=== PATIENT | female | born 1990 | race Caucasian/White ===

== ENCOUNTER 2017-08-26 20:08 | Emergency (ER) | payer MEDICAID ==
[~2017-08-26] VITALS: Ht 154.9 cm; Wt 51.3 kg
[2017-08-26 20:14] VITALS: BP 115/87
[2017-08-26 21:19] LABS: Urine Bacteria NONE SEEN /hpf (None Seen); Urine Blood Negative /uL (Negative); Urine Specific Gravity 1.004 (1.001-1.035); Urine WBC 2 /hpf (0 - 5)
[2017-08-27] MEDS ORDERED: MORPHINE SULF INJ 2 MG/ML SYRINGE 1ML ONE (00:39)
[2017-08-27] MEDS ORDERED: PROMETHAZINE HCL 25 MG/ML 1ML ONE (00:39)
== END 2017-08-26 22:35 | disposition left against medical advice (07) ==
LOC: ER 20:08
DX: R10.30 Lower abdominal pain, unspecified (principal); Z53.21 Procedure and treatment not carried out due to patient leaving prior to being seen by health care provider
CPT/HCPCS: 81001

== ENCOUNTER 2018-01-23 11:40 | Observation (INO) | payer MEDICAID ==
[2018-01-23] MEDS ORDERED: PREN-96 PO (15:08)
== END 2018-01-23 13:35 | disposition home or self-care (01) | DRG 566 ==
LOC: LDRP 11:40
PROVIDERS: ADMIT Obstetrics & Gynecology; ATTEND Obstetrics & Gynecology
DX: O24.419 Gestational diabetes mellitus in pregnancy, unspecified control (principal); Z3A.36 36 weeks gestation of pregnancy
CPT/HCPCS: G0378 ×2

== ENCOUNTER 2018-01-31 02:10 | Observation (INO) | payer MEDICAID ==
[~2018-01-31 02:10] MED LIST: PREN-96 PO
== END 2018-01-31 04:30 | disposition home or self-care (01) | DRG 565 ==
LOC: LDRP 02:10
PROVIDERS: ADMIT Specialist; ATTEND Specialist
DX: O47.9 False labor, unspecified (principal); O24.419 Gestational diabetes mellitus in pregnancy, unspecified control; Z3A.37 37 weeks gestation of pregnancy
CPT/HCPCS: 59025; 76818; 81002; 82962; G0378

== ENCOUNTER 2018-02-03 12:20 | Observation (INO) | payer MEDICAID ==
[2018-02-03 14:42] LABS: Hematocrit 39.1 % (36.0-46.0); Mean Corpuscular Hemoglobin 29.3 pg (28.0-32.0); Mean Corpuscular Hgb Conc. 33.2 g/dL (32.0-36.0); Mean Corpuscular Volume 88.2 fL (80.0-100.0); Platelet Count (auto) 246 10^3/uL (140-450); Red Blood Cells 4.43 10^6/uL (4.0-5.20); Red Cell Distribution Width 14.4 % (11.8-14.3); White Blood Cell 13.2 10^3/uL (4.4-10.8)
[2018-02-03 15:07] LABS: Basophils % (manual) 0 (0.0-2.0); Blast Cells 0; Metamyelocytes % 0; Promyelocytes % 0; Reactive Lymphocytes 0
[2018-02-03 15:37] LABS: Band Neutrophils % (manual) 2; Eosinophils % (manual) 1 (0-7); Lymphocytes % (manual) 13 (10.0-50.0); Monocytes % (manual) 8 (0-12); Myelocytes % 1
[2018-02-03 15:38] LABS: Alcohol, Urine < 3.0 mg/dL (0-5); Amphetamine Screen, Urine NEGATIVE (NEGATIVE); Barbiturate Scree,Urine NEGATIVE (NEGATIVE); Benzodiazephine Screen, Urine NEGATIVE (NEGATIVE); Cocaine Screen, Urine NEGATIVE (NEGATIVE); Opiate Scree,Urine NEGATIVE (NEGATIVE); Phencyclidine Screen, Urine NEGATIVE (NEGATIVE)
[2018-02-03 16:29] LABS: Cannabinoid Screen, Urine NEGATIVE (NEGATIVE)
[2018-02-06 05:06] LABS: RPR Non Reactive (Non Reactive)
== END 2018-02-03 15:20 | disposition home or self-care (01) | DRG 566 ==
LOC: LDRP 12:20
PROVIDERS: ADMIT Obstetrics & Gynecology; ATTEND Obstetrics & Gynecology
DX: O24.419 Gestational diabetes mellitus in pregnancy, unspecified control (principal); O62.9 Abnormality of forces of labor, unspecified; Z3A.37 37 weeks gestation of pregnancy
CPT/HCPCS: 36415; 59025; 76805; 76818; 80307; 81002; 83036; 85007; 85027; 86592; G0378

== ENCOUNTER 2018-02-04 09:50 | Observation (INO) | payer MEDICAID | END 2018-02-04 11:25 | disposition home or self-care (01) | DRG 566 | LOC: LDRP 09:50 | PROVIDERS: ADMIT Specialist; ATTEND Specialist | DX: O24.419 Gestational diabetes mellitus in pregnancy, unspecified control (principal); O21.2 Late vomiting of pregnancy; O62.9 Abnormality of forces of labor, unspecified; Z3A.38 38 weeks gestation of pregnancy | CPT/HCPCS: 59025; 76818; 81002; 82962; G0378 ==

== ENCOUNTER 2018-02-11 13:30 | Observation (INO) | payer MEDICAID | END 2018-02-11 15:30 | disposition home or self-care (01) | DRG 566 | LOC: LDRP 13:30 | PROVIDERS: ADMIT Specialist; ATTEND Specialist | DX: O42.92 Full-term premature rupture of membranes, unspecified as to length of time between rupture and onset of labor (principal); O26.893 Other specified pregnancy related conditions, third trimester; O62.9 Abnormality of forces of labor, unspecified; Z3A.39 39 weeks gestation of pregnancy; R51 Headache | CPT/HCPCS: 59025; 76815; 81002; G0378 ==

== ENCOUNTER 2018-02-16 12:05 | Observation (INO) | payer MEDICAID ==
[2018-02-16] MEDS ORDERED: LACT. RINGERS/OXYTOCIN 20UNITS 1,000 ML IV ONE (15:43)
[2018-02-16] MEDS ORDERED: LIDOCAINE 2%HCL (LOCAL ANESTH.) INJ 20ML MDV ONE (15:43)
== END 2018-02-16 14:05 | disposition home or self-care (01) | DRG 566 ==
LOC: LDRP 12:05
PROVIDERS: ADMIT Obstetrics & Gynecology; ATTEND Obstetrics & Gynecology
DX: O24.419 Gestational diabetes mellitus in pregnancy, unspecified control (principal); O62.9 Abnormality of forces of labor, unspecified; Z3A.39 39 weeks gestation of pregnancy
CPT/HCPCS: 59025; 81002; 82948; 82962; G0378; J2590; 59409; 96361; 96366

== ENCOUNTER 2019-12-12 16:06 | Emergency (ER) | payer MEDICAID ==
[~2019-12-12] VITALS: Ht 154.9 cm; Wt 52.2 kg
[2019-12-12 16:09] VITALS: BP 113/78
[2019-12-12] MEDS ORDERED: SODIUM CHLORIDE 0.9% 1,000 ML IV ONE (16:30)
[2019-12-12] MEDS ORDERED: SODIUM CHLORIDE 0.9% 1,000 ML IVB ONE (16:30)
[2019-12-12] MEDS ORDERED: KETOROLAC TROMETH 30 MG/ML 1ML VIAL IV ONE (16:30)
[2019-12-12 16:55] LABS: Basophils # (auto) 0 10 ^3/uL (0-0.2); Basophils % (auto) 0.5 % (0.0-2.0); Eosinophils # (auto) 0.3 10 ^3/uL (0-0.8); Eosinophils % (auto) 3.2 % (0.0-7.0); Hematocrit 42.3 % (36.0-46.0); Hemoglobin 14.8 g/dL (12.2-16.2); Lymphocytes # (auto) 3.3 10 ^3/uL (0.4-5.4); Lymphocytes % (auto) 38.4 % (10.0-50.0); Mean Corpuscular Hemoglobin 30.7 pg (28.0-32.0); Mean Corpuscular Hgb Conc. 35.1 g/dL (32.0-36.0); Mean Corpuscular Volume 87.6 fL (80.0-100.0); Monocytes # (auto) 0.5 10 ^3/uL (0-1.3); Monocytes % (auto) 5.4 % (0.0-12.0); Neutrophils # (auto) 4.5 10 ^3/uL (1.6-8.6); Neutrophils % (auto) 52.5 % (37.0-80.0); Nucleated Red Blood Cells % 0.1 %; Platelet Count (auto) 287 10^3/uL (140-450); Red Blood Cells 4.82 10^6/uL (4.0-5.20); Red Cell Distribution Width 13.1 % (11.8-14.3); White Blood Cell 8.5 10^3/uL (4.4-10.8)
[2019-12-12 16:57] LABS: Urine Bacteria FEW /hpf (None Seen); Urine Blood Negative /uL (Negative); Urine Mucus FEW (None Seen); Urine Specific Gravity 1.033 (1.001-1.035); Urine WBC 10 /hpf (0 - 5)
[2019-12-12 17:07] LABS: Albumin 4.4 g/dL (3.4-5.0); BUN/Creatinine Ratio 12.4; Calcium 9.8 mg/dL (8.5-10.1); Potassium 3.1 mmol/L (3.5-5.1)
[2019-12-12 17:08] LABS: Alcohol, Urine < 3.0 mg/dL (0-10); Amphetamine Screen, Urine POSITIVE (NEGATIVE); Barbiturate Scree,Urine NEGATIVE (NEGATIVE); Benzodiazephine Screen, Urine NEGATIVE (NEGATIVE); Cannabinoid Screen, Urine NEGATIVE (NEGATIVE); Cocaine Screen, Urine NEGATIVE (NEGATIVE); Phencyclidine Screen, Urine NEGATIVE (NEGATIVE)
[2019-12-12 17:13] LABS: Bilirubin, Total 0.8 mg/dL (0.2-1.0); Total Protein 7.8 g/dL (6.4-8.2)
[2019-12-12 17:15] LABS: Opiate Scree,Urine NEGATIVE (NEGATIVE)
== END 2019-12-12 17:05 | disposition left against medical advice (07) ==
LOC: EDUNIT# 16:06 → EDBD 16:06 → ER 16:06
DX: R10.9 Unspecified abdominal pain (principal); E86.0 Dehydration; F17.210 Nicotine dependence, cigarettes, uncomplicated
CPT/HCPCS: 36415; 80053; 80307; 81001; 85025; 96361; 96374; 99283; J1885; J7030

== ENCOUNTER 2020-09-09 10:50 | Observation (INO) | payer MEDICAID ==
[~2020-09-09] VITALS: Ht 154.9 cm; Wt 83.5 kg
== END 2020-09-09 13:24 | disposition home or self-care (01) ==
LOC: LDRP 10:50
PROVIDERS: ADMIT Specialist; ATTEND Specialist
DX: O36.63X0 Maternal care for excessive fetal growth, third trimester, not applicable or unspecified (principal); O62.9 Abnormality of forces of labor, unspecified; O36.8130 Decreased fetal movements, third trimester, not applicable or unspecified; Z3A.36 36 weeks gestation of pregnancy; Z87.891 Personal history of nicotine dependence
CPT/HCPCS: 59025; 76818; 81002; 94760; G0378

== ENCOUNTER 2020-09-12 12:55 | Observation (INO) | payer MEDICAID ==
[~2020-09-12] VITALS: Ht 154.9 cm; Wt 83.0 kg
== END 2020-09-12 15:20 | disposition home or self-care (01) ==
LOC: LDRP 12:55
PROVIDERS: ADMIT Obstetrics & Gynecology; ATTEND Obstetrics & Gynecology
DX: O36.63X0 Maternal care for excessive fetal growth, third trimester, not applicable or unspecified (principal); O62.9 Abnormality of forces of labor, unspecified; Z87.891 Personal history of nicotine dependence; Z3A.37 37 weeks gestation of pregnancy
CPT/HCPCS: 59025; 76818; 81002; 94760; G0378

== ENCOUNTER 2020-09-25 04:07 | Inpatient (IN) | payer MEDICAID ==
[~2020-09-25] VITALS: Ht 154.9 cm; Wt 84.4 kg
[2020-09-25] VITALS (13 sets, daily range): BP systolic 97–126; BP diastolic 50–79
[2020-09-25] MEDS ORDERED: LACTATED RINGER'S 1,000 ML IV ONE (05:00)
[2020-09-25 05:47] LABS: Basophils % (auto) 0.4 % (0.0-2.0); Eosinophils # (auto) 0.1 10 ^3/uL (0-0.8); Eosinophils % (auto) 1.2 % (0.0-7.0); Monocytes # (auto) 0.9 10 ^3/uL (0-1.3); Neutrophils # (auto) 8.2 10 ^3/uL (1.6-8.6)
[2020-09-25 05:49] LABS: Urine Bacteria FEW /hpf (None Seen); Urine Blood Negative /uL (Negative); Urine Specific Gravity 1.016 (1.001-1.035); Urine WBC 3 /hpf (0 - 5)
[2020-09-25 05:50] LABS: Basophils # (auto) 0.1 10 ^3/uL (0-0.2); Hematocrit 34.9 % (36.0-46.0); Hemoglobin 11.7 g/dL (12.2-16.2); Lymphocytes # (auto) 2.3 10 ^3/uL (0.4-5.4); Mean Corpuscular Hemoglobin 26.5 pg (28.0-32.0); Mean Corpuscular Hgb Conc. 33.6 g/dL (32.0-36.0); Mean Corpuscular Volume 78.8 fL (80.0-100.0); Monocytes % (auto) 7.8 % (0.0-12.0); Neutrophils % (auto) 70.6 % (37.0-80.0); Nucleated Red Blood Cells % 0.1 %; Red Blood Cells 4.42 10^6/uL (4.0-5.20); Red Cell Distribution Width 15.8 % (11.8-14.3); White Blood Cell 11.6 10^3/uL (4.4-10.8)
[2020-09-25] MEDS: LACTATED RINGER'S 1,000 ML IV SCH ×2 (05:50→14:45)
[2020-09-25] MEDS ORDERED: ceFAZolin 1GM/50ML 50 ML IV ONE (06:00)
[2020-09-25 06:04] LABS: INR 0.93 (0.9-1.15); Partial Thromboplastin Time 25.2 sec (23.0-31.2)
[2020-09-25 06:25] LABS: Albumin 2.6 g/dL (3.4-5.0); Calcium 8.5 mg/dL (8.5-10.1); Potassium 3.9 mmol/L (3.5-5.1)
[2020-09-25 06:28] LABS: BUN/Creatinine Ratio 11.1
[2020-09-25 06:30] LABS: Bilirubin, Total 0.2 mg/dL (0.2-1.0); Total Protein 6.8 g/dL (6.4-8.2)
[2020-09-25 06:31] LABS: Barbiturate Scree,Urine NEGATIVE (NEGATIVE)
[2020-09-25 06:33] LABS: Amphetamine Screen, Urine NEGATIVE (NEGATIVE); Benzodiazephine Screen, Urine NEGATIVE (NEGATIVE); Cannabinoid Screen, Urine NEGATIVE (NEGATIVE); Cocaine Screen, Urine NEGATIVE (NEGATIVE); Opiate Scree,Urine NEGATIVE (NEGATIVE); Phencyclidine Screen, Urine NEGATIVE (NEGATIVE)
[2020-09-25] MEDS ORDERED: SODIUM CITR/CITRIC ACID ORAL SOLN 30 ML PO STA (07:13)
[2020-09-25] MEDS ORDERED: TETRACAINE 1% INJ 2 ML VIAL IJ ONE (07:30)
[2020-09-25] MEDS ORDERED: MORPHINE SULF(PF) 0.5MG/ML 10ML VIAL ONE (07:32)
[2020-09-25] MEDS ORDERED: fentaNYL CITRATE 100 MCG/2 ML VL ONE (07:33)
[2020-09-25] MEDS ORDERED: ePHEDrine SULFATE 50 MG/ML AMP ONE (07:50)
[2020-09-25] MEDS ORDERED: ONDANSETRON HCL 4 MG/2 ML VIAL IV PRN ×2 (08:45→09:15)
[2020-09-25] MEDS ORDERED: LACT. RINGERS/OXYTOCIN 20UNITS 1,000 ML IV ONE (08:45)
[2020-09-25] MEDS ORDERED: MORPHINE SULFATE 4 MG/ML SYR/VIAL IV PRN (08:45)
[2020-09-25] MEDS ORDERED: ceFAZolin 1GM/50ML 50 ML IV SCH (08:45)
[2020-09-25] MEDS ORDERED: NALOXONE HCL 0.4 MG/ML VIAL IV PRN (09:15)
[2020-09-25] MEDS ORDERED: KETOROLAC TROMETH 30 MG/ML 1ML VIAL IV PRN (09:15)
[2020-09-25] MEDS ORDERED: NALBUPHINE HCL 10 MG/1ml INJECTION SUBCUT ONE (09:15)
[2020-09-25] MEDS ORDERED: DexAMETHasone SOD PHOS 10MG/1ML VIAL INJ IV PRN (09:15)
[2020-09-25] MEDS ORDERED: diphenhdrAMINE HCL 50 MG/1 ML VL IV PRN (09:15)
[2020-09-25] MEDS ORDERED: HYDROmorphone HCL 2 MG/ML VL IV PRN (09:15)
[2020-09-25] MEDS: HYDROmorphone HCL 2 MG/ML VL ONE ×3 (09:18→12:35)
[2020-09-25] MEDS ORDERED: LACTATED RINGER'S 500 ML IV ONE ×2 (10:00→13:15)
[2020-09-25] MEDS ORDERED: HYDROmorphone HCL 2 MG/ML VL ONE (11:25)
[2020-09-25] MEDS ORDERED: HYDROmorphone HCL 2 MG/ML VL IM ONE (11:30)
[2020-09-25 11:39] LABS: Basophils # (auto) 0.1 10 ^3/uL (0-0.2); Basophils % (auto) 0.3 % (0.0-2.0); Eosinophils # (auto) 0 10 ^3/uL (0-0.8); Eosinophils % (auto) 0.2 % (0.0-7.0); Hemoglobin 10.2 g/dL (12.2-16.2); Lymphocytes # (auto) 1.8 10 ^3/uL (0.4-5.4); Lymphocytes % (auto) 8.5 % (10.0-50.0); Mean Corpuscular Hgb Conc. 34.1 g/dL (32.0-36.0); Monocytes # (auto) 1.2 10 ^3/uL (0-1.3); Monocytes % (auto) 5.8 % (0.0-12.0); Neutrophils # (auto) 17.5 10 ^3/uL (1.6-8.6); Neutrophils % (auto) 85.2 % (37.0-80.0); White Blood Cell 20.5 10^3/uL (4.4-10.8)
[2020-09-25] MEDS: ACETAMINOPHEN IV 1000 MG/100ML (10MG/ML) IV PRN (14:59)
[2020-09-25] MEDS: ceFAZolin 1GM/50ML 50 ML IV SCH (15:30)
[2020-09-25 21:39] LABS: Basophils # (auto) 0 10 ^3/uL (0-0.2); Eosinophils # (auto) 0 10 ^3/uL (0-0.8); Eosinophils % (auto) 0.1 % (0.0-7.0)
[2020-09-25 21:40] LABS: Basophils % (auto) 0.1 % (0.0-2.0); Hematocrit 26.2 % (36.0-46.0); Hemoglobin 8.8 g/dL (12.2-16.2); Lymphocytes # (auto) 2.1 10 ^3/uL (0.4-5.4); Lymphocytes % (auto) 12.6 % (10.0-50.0); Mean Corpuscular Hemoglobin 26.8 pg (28.0-32.0); Mean Corpuscular Hgb Conc. 33.6 g/dL (32.0-36.0); Mean Corpuscular Volume 79.6 fL (80.0-100.0); Monocytes # (auto) 1.1 10 ^3/uL (0-1.3); Monocytes % (auto) 6.7 % (0.0-12.0); Neutrophils # (auto) 13.5 10 ^3/uL (1.6-8.6); Neutrophils % (auto) 80.5 % (37.0-80.0); Red Cell Distribution Width 15.9 % (11.8-14.3); White Blood Cell 16.8 10^3/uL (4.4-10.8)
[2020-09-26] VITALS (15 sets, daily range): BP systolic 97–127; BP diastolic 52–71
[2020-09-26] MEDS ORDERED: ACETAMINOPHEN IV 1000 MG/100ML (10MG/ML) IV ONE (01:30)
[2020-09-26] MEDS: LACTATED RINGER'S 1,000 ML IV SCH (01:32)
[2020-09-26] MEDS: ceFAZolin 1GM/50ML 50 ML IV SCH ×2 (01:33→09:27)
[2020-09-26] MEDS: ACETAMINOPHEN IV 1000 MG/100ML (10MG/ML) IV PRN (03:41)
[2020-09-26 06:52] LABS: Basophils # (auto) 0 10 ^3/uL (0-0.2); Eosinophils # (auto) 0.1 10 ^3/uL (0-0.8); Hematocrit 24.7 % (36.0-46.0); Lymphocytes # (auto) 1.7 10 ^3/uL (0.4-5.4); Lymphocytes % (auto) 12.9 % (10.0-50.0); Mean Corpuscular Hemoglobin 26.6 pg (28.0-32.0); Mean Corpuscular Hgb Conc. 33.4 g/dL (32.0-36.0)
[2020-09-26 06:55] LABS: Basophils % (auto) 0.2 % (0.0-2.0); Eosinophils % (auto) 0.7 % (0.0-7.0); Hemoglobin 8.3 g/dL (12.2-16.2); Mean Corpuscular Volume 79.6 fL (80.0-100.0); Monocytes # (auto) 0.8 10 ^3/uL (0-1.3); Monocytes % (auto) 6.5 % (0.0-12.0); Neutrophils # (auto) 10.4 10 ^3/uL (1.6-8.6); Neutrophils % (auto) 79.7 % (37.0-80.0); Red Blood Cells 3.11 10^6/uL (4.0-5.20); Red Cell Distribution Width 16.2 % (11.8-14.3)
[2020-09-26 07:06] LABS: RPR Non Reactive (Non Reactive)
[2020-09-26] MEDS ORDERED: HYDROcodone-ACET 5/325MG TAB PO PRN (07:30)
[2020-09-26] MEDS ORDERED: LACTATED RINGER'S 1,000 ML IV SCH (07:30)
[2020-09-26] MEDS ORDERED: BISACODYL 10 MG RECT SUPP PR PRN (07:30)
[2020-09-26] MEDS: FERROUS SULFATE 325mg EC TAB PO SCH ×2 (09:25→21:57)
[2020-09-26] MEDS: HYDROcodone-ACET 5/325MG TAB PO PRN ×2 (09:25→18:27)
[2020-09-26] MEDS: DOCUSATE CALCIUM 240 MG CAP PO SCH (09:25)
[2020-09-26] MEDS: DOCUSATE SOD 100 MG CAP PO SCH ×2 (09:25→21:57)
[2020-09-26] MEDS ORDERED: DOCUSATE SOD 100 MG CAP PO SCH (10:00)
[2020-09-26] MEDS: IBUPROFEN 800 MG TAB PO PRN ×2 (12:46→21:58)
[2020-09-26] MEDS: SIMETHICONE 80 MG CHEWABLE TABLET PO SCH ×3 (18:00→21:57)
[2020-09-26] MEDS ORDERED: diphenhdrAMINE HCL 50 MG/1 ML VL IV PRN (18:45)
[2020-09-27 03:00] VITALS: BP 103/60
[2020-09-27] MEDS: SIMETHICONE 80 MG CHEWABLE TABLET PO SCH ×4 (05:20→21:56)
[2020-09-27] MEDS: HYDROcodone-ACET 5/325MG TAB PO PRN ×3 (05:20→19:22)
[2020-09-27 07:30] VITALS: BP 100/60
[2020-09-27] MEDS: DOCUSATE CALCIUM 240 MG CAP PO SCH (09:33)
[2020-09-27] MEDS: DOCUSATE SOD 100 MG CAP PO SCH ×2 (09:33→21:56)
[2020-09-27] MEDS: FERROUS SULFATE 325mg EC TAB PO SCH ×2 (09:34→21:56)
[2020-09-27] MEDS: IBUPROFEN 800 MG TAB PO PRN ×2 (09:37→17:49)
[2020-09-27] MEDS ORDERED: FERR-7 PO (10:10)
[2020-09-27] MEDS ORDERED: HYDR-4902 PO (10:10)
[2020-09-27] MEDS ORDERED: IBUP600T27 PO (10:10)
[2020-09-27] MEDS ORDERED: DOCU-94 PO (10:10)
[2020-09-27 11:30] VITALS: BP 120/73
[2020-09-27 15:30] VITALS: BP 104/70
[2020-09-27 19:30] VITALS: BP 111/60
[2020-09-27 23:10] VITALS: BP 127/68
[2020-09-28] MEDS: IBUPROFEN 800 MG TAB PO PRN (03:06)
[2020-09-28 03:11] VITALS: BP 109/69
[2020-09-28] MEDS: HYDROcodone-ACET 5/325MG TAB PO PRN (04:19)
[2020-09-28] MEDS: SIMETHICONE 80 MG CHEWABLE TABLET PO SCH (05:46)
[2020-09-28 07:00] VITALS: BP 128/69
== END 2020-09-28 09:19 | disposition home or self-care (01) | DRG 540 ==
LOC: LDRP 04:07 → NUR 08:47 → LDRP 09:48
PROVIDERS: ADMIT Obstetrics & Gynecology; ATTEND Obstetrics & Gynecology
PROC: 10D00Z1 Extraction of Products of Conception, Low, Open Approach (ICD-10-PCS; principal; 2020-09-25 07:35)
DX: O24.429 Gestational diabetes mellitus in childbirth, unspecified control (principal); O99.12 Other diseases of the blood and blood-forming organs and certain disorders involving the immune mechanism complicating childbirth; R00.0 Tachycardia, unspecified; R71.0 Precipitous drop in hematocrit; O36.63X0 Maternal care for excessive fetal growth, third trimester, not applicable or unspecified; D72.829 Elevated white blood cell count, unspecified; Z37.0 Single live birth; Z3A.39 39 weeks gestation of pregnancy; Z91.19 Patient's noncompliance with other medical treatment and regimen
CPT/HCPCS: 36415; 59025; 80053; 80307; 81001; 81002; 85025; 85610; 85730; 86592; 86850; 86900; 86901; 93306; 94762; 96360; 96361; 96365; 96366; G0378; J0131; J0690; J2405

== ENCOUNTER 2021-01-24 01:22 | Emergency (ER) | payer MEDICAID ==
[~2021-01-24] VITALS: Ht 154.9 cm; Wt 72.1 kg
[~2021-01-24 01:22] MED LIST changes: +DOCU-94 PO; +FERR-7 PO; +HYDR-4902 PO; +IBUP600T27 PO
[2021-01-24 01:23] VITALS: BP 114/69
[2021-01-24 03:07] LABS: Basophils # (auto) 0 10 ^3/uL (0-0.2); Basophils % (auto) 0.2 % (0.0-2.0); Eosinophils # (auto) 0.1 10 ^3/uL (0-0.8); Lymphocytes # (auto) 0.7 10 ^3/uL (0.4-5.4); Monocytes # (auto) 0.4 10 ^3/uL (0-1.3); Neutrophils # (auto) 12.4 10 ^3/uL (1.6-8.6)
[2021-01-24 03:09] LABS: Eosinophils % (auto) 0.6 % (0.0-7.0); Hematocrit 41.7 % (36.0-46.0); Hemoglobin 13.9 g/dL (12.2-16.2); Lymphocytes % (auto) 5.4 % (10.0-50.0); Mean Corpuscular Hemoglobin 27.1 pg (28.0-32.0); Mean Corpuscular Hgb Conc. 33.3 g/dL (32.0-36.0); Mean Corpuscular Volume 81.4 fL (80.0-100.0); Monocytes % (auto) 3.1 % (0.0-12.0); Neutrophils % (auto) 90.7 % (37.0-80.0); Red Blood Cells 5.12 10^6/uL (4.0-5.20); Red Cell Distribution Width 14.4 % (11.8-14.3); White Blood Cell 13.6 10^3/uL (4.4-10.8)
[2021-01-24 03:30] LABS: Albumin 3.8 g/dL (3.4-5.0); BUN/Creatinine Ratio 17.9; Bilirubin, Total 0.5 mg/dL (0.2-1.0); Calcium 8.6 mg/dL (8.5-10.1); Total Protein 7.9 g/dL (6.4-8.2)
== END 2021-01-24 04:55 | disposition left against medical advice (07) ==
LOC: ER 01:22
DX: R07.89 Other chest pain (principal); Z53.21 Procedure and treatment not carried out due to patient leaving prior to being seen by health care provider; Z20.822 Contact with and (suspected) exposure to COVID-19
CPT/HCPCS: 36415; 80053; 83880; 84484; 84702; 85025; 85379; 87426; 93005

== ENCOUNTER 2021-05-18 01:13 | Inpatient (IN) | payer MEDICAID ==
[~2021-05-18] VITALS: Ht 154.9 cm; Wt 72.9 kg
[2021-05-18 02:11] LABS: Urine Bacteria NONE SEEN /hpf (None Seen); Urine Blood Negative /uL (Negative); Urine Hyaline Cast FEW /lpf (0 - 2); Urine Specific Gravity 1.022 (1.001-1.035); Urine WBC 4 /hpf (0 - 5)
[2021-05-18 03:24] LABS: Basophils # (auto) 0 10 ^3/uL (0-0.2); Basophils % (auto) 0.3 % (0.0-2.0); Eosinophils # (auto) 0.2 10 ^3/uL (0-0.8); Eosinophils % (auto) 1.5 % (0.0-7.0); Hematocrit 43.3 % (36.0-46.0); Hemoglobin 14.9 g/dL (12.2-16.2); Lymphocytes # (auto) 2.2 10 ^3/uL (0.4-5.4); Lymphocytes % (auto) 19.4 % (10.0-50.0); Mean Corpuscular Hemoglobin 28.9 pg (28.0-32.0); Mean Corpuscular Hgb Conc. 34.5 g/dL (32.0-36.0); Mean Corpuscular Volume 83.9 fL (80.0-100.0); Monocytes # (auto) 0.6 10 ^3/uL (0-1.3); Monocytes % (auto) 5.3 % (0.0-12.0); Neutrophils # (auto) 8.4 10 ^3/uL (1.6-8.6); Neutrophils % (auto) 73.5 % (37.0-80.0); Nucleated Red Blood Cells % 0.1 %; Red Blood Cells 5.16 10^6/uL (4.0-5.20); Red Cell Distribution Width 12.7 % (11.8-14.3); White Blood Cell 11.4 10^3/uL (4.4-10.8)
[2021-05-18 03:45] LABS: Potassium 4.7 mmol/L (3.5-5.1)
[2021-05-18 03:50] LABS: Albumin 3.9 g/dL (3.4-5.0); BUN/Creatinine Ratio 21.5; Calcium 8.7 mg/dL (8.5-10.1)
[2021-05-18 03:54] LABS: Bilirubin, Total 0.5 mg/dL (0.2-1.0); Total Protein 7.6 g/dL (6.4-8.2)
[2021-05-18] MEDS ORDERED: PIPERACILLIN-TAZOB 3.375GM 100 ML IV ONE (04:30)
[2021-05-18] MEDS ORDERED: ONDANSETRON HCL 4 MG/2 ML VIAL IV PRN ×3 (07:15→10:45)
[2021-05-18] MEDS ORDERED: MORPHINE SULFATE 4 MG/ML SYR/VIAL IV PRN ×2 (07:15→10:45)
[2021-05-18] MEDS ORDERED: D5W/SOD CHLO 0.9% 1,000 ML IV SCH (07:15)
[2021-05-18] MEDS ORDERED: metroNIDAZOLE 500MG/100ML 100 ML IV ONE (07:17)
[2021-05-18] MEDS ORDERED: BUPIVACAINE W/ EPINEPH 0.25% INJ 50ML MDV ONE (07:19)
[2021-05-18] MEDS ORDERED: SUCCINYLCHOLINE CHLORIDE 20 MG/ML 10ML VIAL IV ONE (07:28)
[2021-05-18] MEDS ORDERED: MIDAZOLAM HCL 2MG/2ML 2ml VIAL (1mg/ml) ONE (07:29)
[2021-05-18] MEDS ORDERED: fentaNYL CITRATE 100 MCG/2 ML VL ONE (07:29)
[2021-05-18] MEDS ORDERED: KETOROLAC TROMETH 30 MG/ML 1ML VIAL ONE (08:13)
[2021-05-18] MEDS ORDERED: GLYCOPYRROLATE 0.2 MG/ML 1ML VIAL ONE (08:13)
[2021-05-18] MEDS ORDERED: ONDANSETRON HCL 4 MG/2 ML VIAL ONE (08:13)
[2021-05-18] MEDS ORDERED: METOCLOPRAMIDE HCL 5MG/ml INJ 2ml VIAL ONE (08:14)
[2021-05-18] MEDS ORDERED: NEOSTIGMINE 1 MG/ML INJ (10mg/10ML VIAL) ONE (08:14)
[2021-05-18] MEDS ORDERED: PROPOFOL 10 MG/ML 20 ML IV ONE (08:14)
[2021-05-18] MEDS ORDERED: DexAMETHasone SOD PHOS 10MG/1ML VIAL INJ ONE (08:14)
[2021-05-18] MEDS ORDERED: LIDOCAINE 2% (LOCAL ANESTH.) PF 5ml SDV ONE (08:14)
[2021-05-18] MEDS ORDERED: METOCLOPRAMIDE HCL 5MG/ml INJ 2ml VIAL IV PRN (08:45)
[2021-05-18] MEDS ORDERED: fentaNYL CITRATE 100 MCG/2 ML VL IV PRN (08:45)
[2021-05-18] MEDS ORDERED: HYDROmorphone HCL 2 MG/ML VL IV PRN ×2 (08:45)
[2021-05-18] MEDS ORDERED: cefTRIAXone 1GM/50ML D5W 50 ML IV SCH (09:00)
[2021-05-18] MEDS: PANTOPRAZOLE 40 MG/10 ML VIAL INJ IV SCH (10:00)
[2021-05-18] MEDS ORDERED: ACETAMINOPHEN 325 MG TAB PO PRN (10:45)
[2021-05-18] MEDS ORDERED: MORPHINE SULFATE INJECTION 2 MG/ML SYRG IV PRN (10:45)
[2021-05-18] MEDS ORDERED: NITROGLYCERIN 0.4 MG SL TAB SL PRN (10:45)
[2021-05-18 11:00] VITALS: BP 102/65
[2021-05-18 13:00] VITALS: BP 102/65
[2021-05-18] MEDS: PIPERACILLIN-TAZOB 3.375GM 100 ML IV SCH ×2 (16:25→23:05)
[2021-05-18 17:00] VITALS: BP 106/63
[2021-05-18] MEDS: metroNIDAZOLE 500MG/100ML 100 ML IV SCH ×2 (17:27→23:39)
[2021-05-18] MEDS: D5W/SOD CHLO 0.9% 1,000 ML IV SCH (19:00)
[2021-05-18 22:47] VITALS: BP 106/62
[2021-05-19] MEDS: D5W/SOD CHLO 0.9% 1,000 ML IV SCH ×2 (02:21→02:22)
[2021-05-19] MEDS: HYDROcodone-ACET 5/325MG TAB PO PRN ×2 (02:48→07:52)
[2021-05-19 05:01] VITALS: BP 105/70
[2021-05-19] MEDS: metroNIDAZOLE 500MG/100ML 100 ML IV SCH ×2 (05:57→14:00)
[2021-05-19] MEDS: PIPERACILLIN-TAZOB 3.375GM 100 ML IV SCH ×3 (05:58→12:10)
[2021-05-19 06:35] LABS: Basophils # (auto) 0 10 ^3/uL (0-0.2); Eosinophils # (auto) 0 10 ^3/uL (0-0.8); Hematocrit 35.1 % (36.0-46.0); Hemoglobin 12.1 g/dL (12.2-16.2); Lymphocytes # (auto) 1.4 10 ^3/uL (0.4-5.4); Lymphocytes % (auto) 10.5 % (10.0-50.0); Mean Corpuscular Hemoglobin 28.8 pg (28.0-32.0); Mean Corpuscular Hgb Conc. 34.4 g/dL (32.0-36.0); Mean Corpuscular Volume 83.8 fL (80.0-100.0); Monocytes # (auto) 0.7 10 ^3/uL (0-1.3); Monocytes % (auto) 5.4 % (0.0-12.0); Neutrophils # (auto) 10.9 10 ^3/uL (1.6-8.6); Neutrophils % (auto) 84.1 % (37.0-80.0); Red Blood Cells 4.19 10^6/uL (4.0-5.20)
[2021-05-19 06:47] LABS: Potassium 3.8 mmol/L (3.5-5.1)
[2021-05-19 06:55] LABS: Albumin 3.2 g/dL (3.4-5.0); BUN/Creatinine Ratio 12.3; Bilirubin, Total 0.3 mg/dL (0.2-1.0); Calcium 7.9 mg/dL (8.5-10.1); Total Protein 6.6 g/dL (6.4-8.2)
[2021-05-19 09:00] VITALS: BP 104/59
[2021-05-19] MEDS ORDERED: CIPR-173 PO (09:46)
[2021-05-19] MEDS ORDERED: ENOXAPARIN SOD 40 MG/0.4 ML SYRINGE SC SCH (10:00)
[2021-05-19] MEDS: PANTOPRAZOLE 40 MG/10 ML VIAL INJ IV SCH (10:05)
[2021-05-19 11:44] VITALS: BP 104/59
[2021-05-19 13:00] VITALS: BP 100/56
== END 2021-05-19 15:18 | disposition home or self-care (01) | DRG 234 ==
LOC: ER 01:14 → OVERFLOW 07:05 → WEST WING 11:19
PROVIDERS: ADMIT Nurse Practitioner; ATTEND Internal Medicine
PROC: 0DTJ4ZZ Resection of Appendix, Percutaneous Endoscopic Approach (ICD-10-PCS; principal; 2021-05-18 07:42)
DX: K35.80 Unspecified acute appendicitis (principal); D72.829 Elevated white blood cell count, unspecified; E16.2 Hypoglycemia, unspecified; Z20.822 Contact with and (suspected) exposure to COVID-19; Z98.891 History of uterine scar from previous surgery; Z91.018 Allergy to other foods
CPT/HCPCS: 36415; 74176; 80053; 81001; 83690; 84702; 85025; 96365; 96366; C9113; G0378; J0330; J1100; J1885; J2001; J2250; J2405; J2543; J2704; J3490; J7042

== ENCOUNTER 2021-10-16 08:11 | Emergency (ER) | payer MEDICAID ==
[~2021-10-16] VITALS: Ht 154.9 cm; Wt 68.0 kg
[~2021-10-16 08:11] MED LIST changes: +CIPR-173 PO; -DOCU-94 PO; -FERR-7 PO; -HYDR-4902 PO; -IBUP600T27 PO; -PREN-96 PO
[2021-10-16 08:25] VITALS: BP 128/86
== END 2021-10-16 10:39 | disposition home or self-care (01) ==
LOC: ER 08:11
DX: S91.145A Puncture wound with foreign body of left lesser toe(s) without damage to nail, initial encounter (principal); W22.8XXA Striking against or struck by other objects, initial encounter; Y93.89 Activity, other specified; Y92.89 Other specified places as the place of occurrence of the external cause; Y99.8 Other external cause status
CPT/HCPCS: 73630

== ENCOUNTER 2022-04-26 13:37 | Emergency (ER) | payer MEDICAID ==
[~2022-04-26] VITALS: Ht 154.9 cm; Wt 72.0 kg
[2022-04-26 13:45] VITALS: BP 123/65
[2022-04-26 14:16] LABS: Basophils # (auto) 0 10 ^3/uL (0-0.2); Basophils % (auto) 0.5 % (0.0-2.0); Eosinophils # (auto) 0.1 10 ^3/uL (0-0.8); Eosinophils % (auto) 1.5 % (0.0-7.0); Hematocrit 42.4 % (36.0-46.0); Hemoglobin 14.9 g/dL (12.2-16.2); Lymphocytes # (auto) 2.2 10 ^3/uL (0.4-5.4); Lymphocytes % (auto) 27.6 % (10.0-50.0); Mean Corpuscular Hemoglobin 30.3 pg (28.0-32.0); Mean Corpuscular Hgb Conc. 35.1 g/dL (32.0-36.0); Mean Corpuscular Volume 86.2 fL (80.0-100.0); Monocytes # (auto) 0.5 10 ^3/uL (0-1.3); Monocytes % (auto) 6.2 % (0.0-12.0); Neutrophils % (auto) 64.2 % (37.0-80.0); Nucleated Red Blood Cells % 0.4 %; Red Blood Cells 4.91 10^6/uL (4.0-5.20); White Blood Cell 7.8 10^3/uL (4.4-10.8)
[2022-04-26 14:30] LABS: Albumin 4.2 g/dL (3.4-5.0); BUN/Creatinine Ratio 14.3; Calcium 8.5 mg/dL (8.5-10.1); Potassium 4.6 mmol/L (3.5-5.1)
[2022-04-26 14:33] LABS: Bilirubin, Total 0.2 mg/dL (0.2-1.0); Total Protein 7.3 g/dL (6.4-8.2)
[2022-04-26] MEDS ORDERED: KETOROLAC TROMETH 60MG/2ML VIAL IM ONE (15:00)
[2022-04-26] MEDS ORDERED: CYCLOBENZAPRINE HCL 10 MG TAB PO ONE (15:00)
[2022-04-26] MEDS ORDERED: NAP500T PO (20:30)
[2022-04-26] MEDS ORDERED: CYCL-611 PO (20:30)
== END 2022-04-26 21:16 | disposition home or self-care (01) ==
LOC: ER 13:37
DX: R07.89 Other chest pain (principal); Z79.2 Long term (current) use of antibiotics; Z91.018 Allergy to other foods
CPT/HCPCS: 36415; 71046; 80053; 83880; 84484; 85025; 93005; 96372; 99285; J1885

== ENCOUNTER 2023-08-09 12:12 | Emergency (ER) | payer MEDICAID ==
[~2023-08-09] VITALS: Ht 154.9 cm; Wt 71.3 kg
[~2023-08-09 12:12] MED LIST changes: +CYCL-611 PO; +NAP500T PO
[2023-08-09 12:35] VITALS: BP 123/81; RESP 16; O2SAT 97
[2023-08-09 12:55] LABS: Basophils # (auto) 0.1 10 ^3/uL (0-0.2); Basophils % (auto) 0.5 % (0.0-2.0); Eosinophils # (auto) 0.2 10 ^3/uL (0-0.8); Hematocrit 43.7 % (36.0-46.0); Hemoglobin 14.5 g/dL (12.2-16.2); Lymphocytes # (auto) 2.7 10 ^3/uL (0.4-5.4); Lymphocytes % (auto) 27.7 % (10.0-50.0); Mean Corpuscular Hemoglobin 28.5 pg (28.0-32.0); Mean Corpuscular Hgb Conc. 33.3 g/dL (32.0-36.0); Mean Corpuscular Volume 85.8 fL (80.0-100.0); Monocytes # (auto) 0.5 10 ^3/uL (0-1.3); Monocytes % (auto) 5.5 % (0.0-12.0); Neutrophils # (auto) 6.3 10 ^3/uL (1.6-8.6); Neutrophils % (auto) 64.3 % (37.0-80.0); Nucleated Red Blood Cells % 0.1 %; Red Blood Cells 5.09 10^6/uL (4.0-5.20); Red Cell Distribution Width 13.1 % (11.8-14.3); White Blood Cell 9.8 10^3/uL (4.4-10.8)
[2023-08-09 13:10] LABS: Partial Thromboplastin Time 29.6 SEC (24.5-34.5); Prothrombin Time 10.6 sec (9.3-11.8)
[2023-08-09 13:11] VITALS: PULSE 112
[2023-08-09] MEDS ORDERED: LORazepam 0.5 MG TAB PO ONE (13:15)
[2023-08-09 13:19] LABS: Alanine Aminotransferase 21 U/L (7-40); Albumin 4.9 g/dL (3.2-4.8); Alkaline Phosphatase 100 U/L (46-116); Anion Gap 2 (5-15); Aspartate Aminotransferase 9 U/L (13-40); BUN/Creatinine Ratio 14.8 (10.0-20.0); Blood Urea Nitrogen 13 mg/dL (9-23); Calcium 10.4 mg/dL (8.5-10.1); Carbon Dioxide 32 mmol/L (20-30); Chloride 105 mmol/L (98-107); Glucose 106 mg/dL (74-106); Magnesium 1.9 mg/dL (1.6-2.6); Potassium 4.5 mmol/L (3.5-5.1); Sodium 139 mmol/L (136-145)
[2023-08-09 13:20] LABS: Bilirubin, Total 0.3 mg/dL (0.2-1.0); Total Protein 7.4 g/dL (5.7-8.2)
== END 2023-08-09 14:35 | disposition left against medical advice (07) ==
LOC: ER 12:12
DX: R07.89 Other chest pain (principal); J45.909 Unspecified asthma, uncomplicated; Z79.899 Other long term (current) drug therapy
CPT/HCPCS: 36415; 80053; 83735; 83880; 84484; 85025; 85379; 85610; 85730; 93005